=== PATIENT | female | born 1990 | race Caucasian/White ===

== ENCOUNTER 2017-05-07 02:52 | Emergency (ER) | payer BC ==
[2017-05-07] MEDS ORDERED: LORazepam 2 MG/ML MDV IM ONE (03:26)
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
[2017-05-07] MEDS ORDERED: diphenhydrAMINE 50 MG/ML SDV IM ONE (03:57)
[2017-05-07] MEDS ORDERED: Haloperidol Lactate 5 MG/ML SDV IM ONE (03:57)
[2017-05-07 09:55] VITALS: BP 110/70
== END 2017-05-07 09:53 | disposition home or self-care (01) ==
LOC: JP.ED 02:52
DX: F10.10 Alcohol abuse, uncomplicated (principal); F31.9 Bipolar disorder, unspecified; F90.8 Attention-deficit hyperactivity disorder, other type; Z87.891 Personal history of nicotine dependence; Z79.899 Other long term (current) drug therapy; Z88.8 Allergy status to other drugs, medicaments and biological substances; Y90.6 Blood alcohol level of 120-199 mg/100 ml
CPT/HCPCS: 36415; 80053; 80305; 81025; 85025; 96372; 99285; G0480; J1200; J1630; J2060

== ENCOUNTER 2019-02-21 12:29 | Emergency (ER) | payer MEDICAID ==
[2019-02-21 12:37] VITALS: BP 101/68
[2019-02-21] MEDS ORDERED: Sodium Chloride 0.9% 1,000 ML IV SCH ×2 (12:45→14:00)
--- NOTE | 2019-02-21 14:23 | EDM.PDOC ---
ED HPI GENERAL MEDICAL PROBLEM - General Chief Complaint: Gastrointestinal Problem Stated Complaint: STOMACH PAIN Time Seen by Provider: 02/21/19 14:17 Source of Information: Reports: Patient History Limitations: Reports: No Limitations - History of Present Illness INITIAL COMMENTS - FREE TEXT/NARRATIVE: pt arrived with ahistory of marked vomiting since early am. She had afew loose stools. She states that her boyfriend also is ill and vomiting. She is and will deliver in may. Onset: Today, Sudden Duration: Hour(s): Location: Reports: Generalized Associated Symptoms: Reports: Loss of Appetite, Nausea/Vomiting, Weakness - Related Data Allergies Allergy/AdvReac Type Severity Reaction Status Date / Time citalopram [From Celexa] Allergy Cannot Verified 05/07/17 03:21 Remember fluoxetine Allergy Cannot Verified 05/07/17 03:21 Remember bupropion AdvReac Anxiety Verified 05/08/17 10:55 Home Meds: Home Meds Yqs066/FA/Omega3/Dha/Fish Oil [ Gummies] 2 tab PO DAILY 02/21/19 [ History] Sertraline [Zoloft] 100 mg PO DAILY 02/21/19 [History] hydrOXYzine HCl [Atarax] 100 mg PO BEDTIME 02/21/19 [History] Past Medical History Psychiatric History: Reports: ADHD, Anxiety, Bipolar, Psych Hospitalization(s), PTSD, Suicide Attempt, Suicidal Ideation - Past Surgical History HEENT Surgical History: Reports: Adenoidectomy, Other (See Below) Other HEENT Surgeries/Procedures: deviated septum Musculoskeletal Surgical History: Reports: Other (See Below) Other Musculoskeletal Surgeries/Procedures:: bunion surgery r knee surgery cyst on wrist. Social & Family History - Tobacco Use Smoking Status *Q: Never Smoker - Caffeine Use Caffeine Use: Reports: Coffee - Recreational Drug Use Recreational Drug Use: No ED ROS GENERAL - Review of Systems Review Of Systems: See Below Constitutional: Reports: Weakness, Decreased Appetite HEENT: Reports: No Symptoms Respiratory: Reports: No Symptoms Cardiovascular: Reports: No Symptoms Endocrine: Reports: No Symptoms GI/Abdominal: Reports: Nausea, Vomiting, Other (pt has no sig pain. She was seen up in ob and her heart tones looked good. A urine was obtained whuich appeared unremarkable. ) Musculoskeletal: Reports: No Symptoms Skin: Reports: No Symptoms ED EXAM, GI/ABD - Physical Exam Exam: See Below Text/Narrative:: pt arrived because of persistent vomiting. She is not having sig pain in the abdoman. Exam Limited By: No Limitations General Appearance: Alert, No Apparent Distress Ears: Normal TMs Nose: Normal Inspection Throat/Mouth: Normal Inspection Head: Atraumatic Neck: Normal Inspection Respiratory/Chest: No Respiratory Distress Cardiovascular: Regular Rate, Rhythm GI/Abdominal Exam: Other (no tenderness. Pt had good heart tones. ) (Female) Exam: Deferred Rectal (Female) Exam: Deferred Back Exam: Normal Inspection Extremities: Normal Inspection Neurological: Alert, Oriented, Normal Cognition Psychiatric: Normal Affect Course - Vital Signs Last Recorded V/S: Last Vital Signs Temp 37.1 C 02/21/19 12:52 Pulse 108 H 02/21/19 12:52 Resp 17 02/21/19 12:52 BP 101/68 02/21/19 12:52 Pulse Ox 97 02/21/19 12:52 - Orders/Labs/Meds Labs: Laboratory Tests 02/21/19 02/21/19 Range/Units 12:43 12:43 WBC 17.2 H (4.5-11.0) K/uL RBC 4.04 (3.30-5.50) M/uL Hgb 12.3 (12.0-15.0) g/dL Hct 36.5 (36.0-48.0) % MCV 90 (80-98) fL MCH 30 (27-31) pg MCHC 34 (32-36) % Plt Count 320 (150-400) K/uL Neut % (Auto) 78 H (36-66) % Lymph % (Auto) 14 L (24-44) % [place] % (Auto) 7 H (2-6) % Eos % (Auto) 0 L (2-4) % Baso % (Auto) 0 (0-1) % Sodium 139 L (140-148) mmol/L Potassium 3.9 (3.6-5.2) mmol/L Chloride 104 (100-108) mmol/L Carbon Dioxide 25 (21-32) mmol/L Anion Gap 13.9 (5.0-14.0) mmol/L BUN 5 L (7-18) mg/dL Creatinine 0.6 (0.6-1.0) mg/dL Est Cr Clr Drug Dosing 126.73 mL/min Estimated GFR (MDRD) > 60 (>60) Glucose 86 (74-106) mg/dL Calcium 8.7 (8.5-10.1) mg/dL Total Bilirubin 0.4 (0.2-1.0) mg/dL AST 13 L (15-37) U/L ALT 14 (12-78) U/L Alkaline Phosphatase 75 (46-116) U/L Total Protein 5.9 L (6.4-8.2) g/dL Albumin 2.6 L (3.4-5.0) g/dL Globulin 3.3 (2.3-3.5) g/dL Albumin/Globulin Ratio 0.8 L (1.2-2.2) Meds: Medications Discontinued Medications Generic Name Dose Route Start Last Admin Trade Name Freq PRN Reason Stop Dose Admin Sodium Chloride 1,000 mls @ 999 mls/hr 02/21/19 12:45 02/21/19 12:55 Normal Saline IV 999 mls/hr ASDIRECTED SHORTY Administration Sodium Chloride 1,000 mls @ 999 mls/hr 02/21/19 14:00 02/21/19 14:13 Normal Saline IV 999 mls/hr ASDIRECTED SHORTY Administration - Re-Assessments/Exams Free Text/Narrative Re-Assessment/Exam: 02/21/19 14:21 pt had a elevated cbc but with being that is difficult to evaluate. Her electrolytes are good. She has no pain in the abdoman. Her urine did not reveal a infection. She is dehydrated and she was given 2 liters of fluid. Departure - Departure Time of Disposition: 15:30 Disposition: Home, Self-Care 01 Condition: Fair Clinical Impression: Dehydration - Discharge Information Instructions: Dehydration, Adult, [id number] Referrals: PCP,None [Primary Care Provider] - Forms: ED Department Discharge Additional Instructions: push fluids , zoforan 4 mg q8h prn for nausea, rtc if persistent problems.
== END 2019-02-21 15:27 | disposition home or self-care (01) ==
LOC: JP.ED 12:29
DX: E86.0 Dehydration (principal); F31.9 Bipolar disorder, unspecified; F41.9 Anxiety disorder, unspecified; Z79.899 Other long term (current) drug therapy; Z88.8 Allergy status to other drugs, medicaments and biological substances; O99.89 Other specified diseases and conditions complicating pregnancy, childbirth and the puerperium; R10.9 Unspecified abdominal pain; O21.9 Vomiting of pregnancy, unspecified; Z3A.28 28 weeks gestation of pregnancy
CPT/HCPCS: 36415; 80053; 81001; 85025; 96360; 96361; 99211; 99283; J7030

== ENCOUNTER 2019-05-08 06:42 | Inpatient (IN) | payer MEDICAID ==
[2019-05-08] MEDS ORDERED: Misoprostol 50 MCG (1/2 of 100 MCG) Tab VAG ONE ×2 (07:28→12:31)
[2019-05-08] MEDS ORDERED: Ondansetron 4 MG/2 ML SDV IV PRN (08:09)
[2019-05-08] MEDS ORDERED: Sodium Chloride 0.9% 10 ML Syringe FLUSH PRN (08:09)
[2019-05-08] MEDS ORDERED: Acetaminophen 325 MG Tab PO PRN (08:09)
--- NOTE | 2019-05-08 09:19 | CRLUS ---
INDICATION: Third trimester scan, evaluate position TECHNIQUE: Limited 2D mckeon scale imaging of the fetus was performed. FINDINGS: The fetus demonstrates a regular cardiac rate of 128 beats per minute. Fetus has a cephalic orientation and longitudinal lie. The placenta lies anteriorly without evidence of placenta previa. Amniotic fluid volume appears normal and there is a four-quadrant fluid volume index measurement of 14.5 cm. The cervix is closed and measures 4.1 cm in length. IMPRESSION: Cephalic orientation of the fetus. Dictated by Santiago Luna MD @ May 08 2019 9:14AM Signed by Dr. Santiago Luna @ May 08 2019 9:17AM
--- NOTE | 2019-05-08 12:43 | PCM.PNLD ---
Labor Progress Note - VS & Meds Vital Signs: Last Vital Signs Temp 36.3 C 05/08/19 07:00 Pulse 87 05/08/19 08:20 Resp 18 05/08/19 07:00 BP 112/54 L 05/08/19 08:20 Pulse Ox Active Medications: Current Medications Acetaminophen (Tylenol) 650 mg PO Q4H PRN PRN Reason: Pain (Mild 1-3) and fever Misoprostol (Cytotec) 25 mcg VAG ONETIME ONE Stop: 05/08/19 12:46 Ondansetron HCl (Zofran) 4 mg IV Q4H PRN PRN Reason: Nausea/Vomiting Sodium Chloride (Saline Flush) 10 ml FLUSH ASDIRECTED PRN PRN Reason: Keep Vein Open Discontinued Medications Misoprostol (Cytotec) 50 mcg VAG ONETIME ONE Stop: 05/08/19 07:29 Last Admin: 05/08/19 07:40 Dose: 50 mcg - Uterine Contractions Uterine Monitoring Mode: External [place] Contraction Frequency (min): 2-2.5 Contraction Duration (sec): 40-50 Uterine Resting Tone: Soft - Monitoring Monitor Mode: External Ultrasound Heart Rate (FHR) Variability: Moderate (6-25 bmp) Accelerations: Present, 15x15 Decelerations: None Strip Review: Category I - Vaginal Exam Dilation (cm): 1 Effacement (Percent): 70 Station: Ballotable Cervical Position: Midposition Sterile Vaginal Exam Performed By: Regine Greene Vaginal Exam Comment: no cervical change since last exam - Labor Progress (Free Text) Labor Progress: 05/08/2019- Patient is bekah now SVE unchanged since this am FHTs category one Patient tolerating contractions with position change and breathing Plan- Will place 25mcg cytotec Continue to monitor for active labor Continue to monitor FHTs Plan and anticipate a vaginal delivery
[2019-05-08] MEDS ORDERED: Misoprostol 25 MCG (1/4 of 100 MCG) Tab VAG ONE (12:45)
--- NOTE | 2019-05-08 12:55 | PCM.LDHP ---
L&D History of Present Illness - General Date of Service: 05/08/19 Admit Problem/Dx: Patient Status Order with Admit Dx/Problem 05/08/19 08:09 Patient Status [ADT] Routine Admission Diagnosis/Problem Admission Diagnosis/Problem - Related Data Allergies/Adverse Reactions: Allergies Allergy/AdvReac Type Severity Reaction Status Date / Time citalopram [From Celexa] Allergy Cannot Verified 05/07/17 03:21 Remember fluoxetine Allergy Cannot Verified 05/07/17 03:21 Remember bupropion AdvReac Anxiety Verified 05/08/17 10:55 Home Medications: Home Meds [id number]/FA/Omega3/Dha/Fish Oil [ Gummies] 2 tab PO DAILY 02/21/19 [ History] Sertraline [Zoloft] 100 mg PO DAILY 02/21/19 [History] hydrOXYzine HCl [Atarax] 100 mg PO BEDTIME 02/21/19 [History] Past Medical History [employer] History: Reports: Psychiatric History: Reports: ADHD, Anxiety, Bipolar, Psych Hospitalization(s), PTSD, Suicide Attempt, Suicidal Ideation - Past Surgical History HEENT Surgical History: Reports: Adenoidectomy, Other (See Below) Other HEENT Surgeries/Procedures: deviated septum Musculoskeletal Surgical History: Reports: Other (See Below) Other Musculoskeletal Surgeries/Procedures:: bunion surgery r knee surgery cyst on wrist. Social & Family History - Tobacco Use Smoking Status *Q: Former Smoker Used Tobacco, but Quit: Yes Month/Year Tobacco Last Used: 03/02/2019 Second Hand Smoke Exposure: No - Caffeine Use Caffeine Use: Reports: None - Recreational Drug Use Recreational Drug Use: No H&P Review of Systems - Review of Systems: Review Of Systems: See Below General: Reports: No Symptoms HEENT: Reports: No Symptoms Pulmonary: Reports: No Symptoms Cardiovascular: Reports: No Symptoms Gastrointestinal: Reports: No Symptoms Genitourinary: Reports: No Symptoms Musculoskeletal: Reports: No Symptoms Skin: Reports: No Symptoms Psychiatric: Reports: No Symptoms Neurological: Reports: No Symptoms Hematologic/Lymphatic: Reports: No Symptoms Immunologic: Reports: No Symptoms L&D Exam - Exam Exam: See Below - Vital Signs Vital Signs: Last Vital Signs Temp 36.3 C 05/08/19 07:00 Pulse 87 05/08/19 12:30 Resp 18 05/08/19 07:00 BP 124/72 05/08/19 12:30 Pulse Ox Weight: 116.12 kg - OB Specific Contraction Duration (sec): 40-50 Contraction Frequency (min): 2-2.5 Contraction Intensity: Mild Heart Rate (FHR) Variability: Moderate (6-25 bmp) Presentation: Vertex - Steel Score Steel Score Cervix Position: Posterior Steel Score Consistency: Soft Steel Score Effacement: 51-70% Steel Score Dilation: 1-2 cm Steel Score Infant's Station: -3 Steel Score Total: 5 - Exam General: Alert, Oriented HEENT: PERRLA, Conjunctiva Clear, EACs Clear, EOMI, Hearing Intact, Mucosa Moist & [place], Nares Patent, Normal Nasal Septum, Posterior Pharynx Clear, TMs Clear Neck: Supple, Trachea Midline Lungs: Clear to Auscultation, Normal Respiratory Effort Cardiovascular: Regular Rate, Regular Rhythm GI/Abdominal Exam: Normal Bowel Sounds, Soft, Non-Tender, No Organomegaly, No Distention, No Abnormal Bruit, No Mass, Pelvis Stable Rectal Exam: Normal Exam, Normal Rectal Tone Genitourinary: Normal external exam, Normal bimanual exam, Normal speculum exam Back Exam: Normal Inspection, Full Range of Motion Extremities: Normal Inspection, Normal Range of Motion, Non-Tender, No Pedal Edema, Normal Capillary Refill Skin: Warm, Dry, Intact Neurological: Cranial Nerves Intact, Reflexes Equal Bilateral Psychiatric: Alert, Normal Affect, Normal Mood - Patient Data Lab Results Last 24 hrs: Laboratory Results - last 24 hr 05/08/19 05/08/19 05/08/19 Range/Units 07:01 08:09 08:09 WBC 15.9 H (4.5-11.0) K/uL RBC 4.09 (3.30-5.50) M/uL Hgb 12.1 (12.0-15.0) g/dL Hct 36.3 (36.0-48.0) % MCV 89 (80-98) fL MCH 30 (27-31) pg MCHC 33 (32-36) % Plt Count 352 (150-400) K/uL Neut % (Auto) 76 H (36-66) % Lymph % (Auto) 16 L (24-44) % [place] % (Auto) 8 H (2-6) % Eos % (Auto) 1 L (2-4) % Baso % (Auto) 0 (0-1) % Urine Color Yellow (YELLOW) Urine Appearance Clear (CLEAR) Urine pH 7.0 (5.0-8.0) Ur Specific [place] 1.015 (1.008-1.030) Urine Protein Negative (NEGATIVE) mg/dL Urine Glucose (UA) Normal (NEGATIVE) mg/dL Urine Ketones Negative (NEGATIVE) mg/dL Urine Occult Blood Negative (NEGATIVE) Urine Nitrite Negative (NEGATIVE) Urine Bilirubin Negative (NEGATIVE) Urine Urobilinogen Normal (0.2-1.0) EU/dL Ur Leukocyte Esterase Negative (NEGATIVE) Urine RBC 0-5 (0-5) Urine WBC 0-5 (0-5) Ur Epithelial Cells Rare Amorphous Sediment Not seen Urine Bacteria Rare Urine Mucus Not seen Urine Opiates Screen Negative (NEGATIVE) Ur Oxycodone Screen Negative (NEGATIVE) Urine Methadone Screen Negative (NEGATIVE) Ur Propoxyphene Screen Negative (NEGATIVE) Ur Barbiturates Screen Negative (NEGATIVE) Ur Tricyclics Screen Negative (NEGATIVE) Ur Phencyclidine Scrn Negative (NEGATIVE) Ur Amphetamine Screen Negative (NEGATIVE) U Methamphetamines Scrn Negative (NEGATIVE) Urine MDMA Screen Negative (NEGATIVE) U Benzodiazepines Scrn Negative (NEGATIVE) U Cocaine Metab Screen Negative (NEGATIVE) U Marijuana (THC) Screen Negative (NEGATIVE) Result Diagrams: 05/08/19 08:09 - Problem List (1) SNOMED Code(s): 07713759 ICD Code: Z34.90 - ENCNTR FOR SUPRVSN OF NORMAL , UNSP, UNSP TRIMESTER Status: Acute Current Visit: Yes Qualifiers: Weeks of gestation: 39 weeks Qualified Code(s): Z3A.39 - 39 weeks gestation of (2) Excessive weight gain during in third trimester SNOMED Code(s): 538668724, 354607076, 367188469 ICD Code: O26.03 - EXCESSIVE WEIGHT GAIN IN , THIRD TRIMESTER Status: Acute Current Visit: Yes (3) Abnormal ultrasound SNOMED Code(s): 46331204716342 ICD Code: O28.3 - ABNORMAL ULTRASONIC FINDING ON SCREENING OF MOTHER Status: Acute Current Visit: Yes (4) Macrosomia of fetus affecting management of mother SNOMED Code(s): 24670563 ICD Code: O36.60X0 - MATERNAL CARE FOR EXCESS GROWTH, UNSP TRIMESTER, UNSP Status: Acute Current Visit: Yes Qualifiers: Fetus number: single or unspecified fetus (5) High risk , antepartum SNOMED Code(s): 70029033 ICD Code: O09.90 - SUPERVISION OF HIGH RISK , UNSP, UNSP TRIMESTER Status: Acute Current Visit: Yes Problem List Initiated/Reviewed/Updated: Yes Orders Last 24hrs: Active Orders 24 hr Category Date Time Status Patient Status [ADT] Routine ADT 05/08/19 08:09 Active Communication Order [RC] ASDIRECTED Care 05/08/19 08:09 Active Heart Tones [RC] PER UNIT ROUTINE Care 05/08/19 08:09 Active Non Stress Test [RC] Click to Edit Care 05/08/19 08:09 Active May Shower [RC] ASDIRECTED Care 05/08/19 08:09 Active Notify Provider Vital Signs [RC] PRN Care 05/08/19 08:09 Active Notify Provider [RC] PRN Care 05/08/19 08:09 Active Up ad Lynda [RC] ASDIRECTED Care 05/08/19 08:09 Active Vital Signs [RC] PER UNIT ROUTINE Care 05/08/19 08:09 Active Regular Diet [DIET] Diet 05/08/19 Breakfast Active Acetaminophen [Tylenol] Med 05/08/19 08:09 Active 650 mg PO Q4H PRN Ondansetron [Zofran] Med 05/08/19 08:09 Active 4 mg IV Q4H PRN Sodium Chloride 0.9% [Saline Flush] Med 05/08/19 08:09 Active 10 ml FLUSH ASDIRECTED PRN Saline Lock Insert [OM.PC] Routine Oth 05/08/19 08:09 Ordered Resuscitation Status Routine Resus Stat 05/08/19 08:09 Ordered Medication Orders Acetaminophen (Tylenol) 650 mg PO Q4H PRN PRN Reason: Pain (Mild 1-3) and fever Ondansetron HCl (Zofran) 4 mg IV Q4H PRN PRN Reason: Nausea/Vomiting Sodium Chloride (Saline Flush) 10 ml FLUSH ASDIRECTED PRN PRN Reason: Keep Vein Open Assessment/Plan Comment:: 05/08/2019 29 yo here at 39 1/7 weeks gestation for induction of labor due to suspected macrosomia with BPD compared to femur length difference SVE-/-5(ballotable) FHTs category one Cytotec 50mcg placed vaginally Bedside ultrasound done to confirm vertex presentation Plan- Continue to monitor for labor Continue to monitor FHTs Patient may be up and about ad lynda Encourage position change May eat regular diet Plan and anticipate a vaginal delivery If no cervical change will place another cytotec in four hours
--- NOTE | 2019-05-08 17:43 | PCM.PNLD ---
Labor Progress Note - VS & Meds Vital Signs: Last Vital Signs Temp 36.6 C 05/08/19 12:40 Pulse 89 05/08/19 13:20 Resp 18 05/08/19 12:50 BP 108/49 L 05/08/19 13:20 Pulse Ox Active Medications: Current Medications Acetaminophen (Tylenol) 650 mg PO Q4H PRN PRN Reason: Pain (Mild 1-3) and fever Oxytocin/Sodium Chloride (Pitocin In Ns 20 Units/1,000 Ml) 20 unit in 1,000 mls @ 6 mls/hr IV TITRATE SHORTY; Protocol Ondansetron HCl (Zofran) 4 mg IV Q4H PRN PRN Reason: Nausea/Vomiting Sodium Chloride (Saline Flush) 10 ml FLUSH ASDIRECTED PRN PRN Reason: Keep Vein Open Zolpidem Tartrate (Ambien) 10 mg PO ONETIME ONE Stop: 05/08/19 20:01 Discontinued Medications Misoprostol (Cytotec) 50 mcg VAG ONETIME ONE Stop: 05/08/19 07:29 Last Admin: 05/08/19 07:40 Dose: 50 mcg Misoprostol (Cytotec) 25 mcg VAG ONETIME ONE Stop: 05/08/19 12:46 Last Admin: 05/08/19 12:45 Dose: 25 mcg - Uterine Contractions Uterine Monitoring Mode: External [place] Contraction Frequency (min): 2-5 Contraction Duration (sec): 40-50 Contraction Intensity: Mild Uterine Resting Tone: Soft - Monitoring Monitor Mode: External Ultrasound Heart Rate (FHR) Variability: Moderate (6-25 bmp) Accelerations: Present, 15x15 Decelerations: None Strip Review: Category I - Vaginal Exam Dilation (cm): 1 Effacement (Percent): 70 Station: Ballotable Cervical Position: Midposition Sterile Vaginal Exam Performed By: Regine Greene Vaginal Exam Comment: no cervical change since last exam - Labor Progress (Free Text) Labor Progress: 05/08/2019 Patient is bekah more regular but not consistent and not uncomfortable SVE unchanged, maybe a little thinner in effacement-1/75/-5 ballotable FHTs category one Discussed all options with patient, patient has decided to sleep in house and if no labor by am she is to be started on Pitocin per patient choice. Plan- Continue to monitor for active labor Continue to monitor FHTs Can go to intermittent monitoring with whenever patient gets up to bathroom If does not awaken-monitor with vital signs every four hours Ambien to be given between [id number] Patient to be awoken at 0430 and then to shower, walk, light breakfast and then after a reactive NST, SVE exam and start pitocin at 0500 Will repeat CBC in am Plan pitocin per protocol starting at 0500 Continuous monitoring after starting pitocin Patient can eat regular diet tonight, light breakfast in am If suspected ROM, amnisure, SVE, leave in bed, and call provider with assessment
[2019-05-08] MEDS ORDERED: Lactated Ringers 1,000 ML IV ONE (18:59)
[2019-05-08] MEDS ORDERED: Oxytocin 10 Units/1 ML SDV ONE ×2 (19:15→20:19)
[2019-05-08] MEDS ORDERED: Lanolin 100% Cream 40 GM Tube TOP PRN (19:42)
[2019-05-08] MEDS ORDERED: diphenhydrAMINE 50 MG/ML SDV IV PRN (19:42)
[2019-05-08] MEDS ORDERED: diphenhydrAMINE 50 MG/ML SDV IVPUSH PRN (19:42)
[2019-05-08] MEDS ORDERED: ePHEDrine 50 MG/ML SDV IVPUSH PRN (19:42)
[2019-05-08] MEDS ORDERED: Naloxone 0.4 MG/ML SDV IVPUSH PRN (19:42)
[2019-05-08] MEDS ORDERED: Hydrocortisone 2.5% Crm 30 GM Tube TOP PRN (19:42)
[2019-05-08] MEDS ORDERED: Bisacodyl 10 MG Supp RECTAL PRN (19:42)
[2019-05-08] MEDS ORDERED: Sodium Chloride 0.9% 1,000 ML IV SCH (19:45)
[2019-05-08] MEDS ORDERED: Zolpidem 5 MG Tab PO ONE (20:00)
[2019-05-08] MEDS ORDERED: Ondansetron 4 MG/2 ML SDV ONE (20:19)
[2019-05-08] MEDS ORDERED: Dexamethasone 4 MG/ML SDV ONE (20:19)
[2019-05-08] MEDS ORDERED: Bupivacaine 0.5% 30 ML SDV ONE (20:19)
[2019-05-08] MEDS ORDERED: ePHEDrine 50 MG/ML SDV ONE (20:19)
[2019-05-08] MEDS ORDERED: cefOXitin 2 GM Vial ONE (20:19)
[2019-05-08] MEDS ORDERED: Midazolam 1 MG/ML 2 ML SDV ONE (20:32)
[2019-05-08] MEDS ORDERED: fentaNYL 100 MCG/2 ML SDV ONE (20:33)
[2019-05-08] MEDS ORDERED: Lactated Ringers 1,000 ML ONE (20:42)
--- NOTE | 2019-05-08 20:49 | PCM.PNLD ---
Labor Progress Note - VS & Meds Vital Signs: Last Vital Signs Temp 36.6 C 05/08/19 12:40 Pulse 89 05/08/19 13:20 Resp 18 05/08/19 12:50 BP 108/49 L 05/08/19 13:20 Pulse Ox Active Medications: Current Medications Acetaminophen (Tylenol) 650 mg PO Q4H PRN PRN Reason: Pain (Mild 1-3) and fever Bisacodyl (Dulcolax) 10 mg RECTAL BID PRN PRN Reason: Constipation Diphenhydramine HCl (Benadryl) 25 mg IVPUSH Q6H PRN PRN Reason: Itching or Nausea Diphenhydramine HCl (Benadryl) 25 mg IV Q4H PRN PRN Reason: Itching Docusate Sodium (Colace) 100 mg PO Q12H PRN PRN Reason: Constipation Emollient Ointment (Lansinoh Hpa) 40 gm TOP ASDIRECTED PRN PRN Reason: sore nipples Ephedrine Sulfate (Ephedrine Sulfate) 5 mg IVPUSH ASDIRECTED PRN PRN Reason: Other Hydrocortisone (Hydrocortisone 2.5% Crm) 0 gm TOP Q4H PRN PRN Reason: Hemorrhoids Oxytocin/Sodium Chloride (Pitocin In Ns 20 Units/1,000 Ml) 20 unit in 1,000 mls @ 6 mls/hr IV TITRATE SHORTY; Protocol Sodium Chloride (Normal Saline) 1,000 mls @ 125 mls/hr IV ASDIRECTED SHORTY Ibuprofen (Motrin) 800 mg PO Q8H PRN PRN Reason: mild pain or fever Naloxone HCl (Narcan) 0.1 mg IVPUSH ASDIRECTED PRN PRN Reason: Respiratory Depression Ondansetron HCl (Zofran) 4 mg IV Q4H PRN PRN Reason: Nausea/Vomiting Ondansetron HCl (Zofran Odt) 8 mg PO Q6H PRN PRN Reason: Nausea/Vomiting Oxycodone/Acetaminophen (Percocet 325-5 Mg) 2 tab PO Q4H PRN PRN Reason: Pain (moderate 4-6) Prenat Multivit/Cash Management Associate/Iron/Folic Ac ( Plus Iron) 1 each PO DAILY SHORTY Sodium Chloride (Saline Flush) 10 ml FLUSH ASDIRECTED PRN PRN Reason: Keep Vein Open Discontinued Medications Bupivacaine HCl (Marcaine 0.5%) Confirm Administered Dose 30 ml .ROUTE .STK-MED ONE Stop: 05/08/19 20:20 Cefoxitin Sodium (Mefoxin) Confirm Administered Dose 2 gm .ROUTE .STK-MED ONE Stop: 05/08/19 20:20 Dexamethasone (Dexamethasone) Confirm Administered Dose 4 mg .ROUTE .STK-MED ONE Stop: 05/08/19 20:20 Ephedrine Sulfate (Ephedrine Sulfate) Confirm Administered Dose 50 mg .ROUTE .STK-MED ONE Stop: 05/08/19 20:20 Fentanyl (Sublimaze) Confirm Administered Dose 100 mcg .ROUTE .STK-MED ONE Stop: 05/08/19 20:34 Lactated Ringer's (Ringers, Lactated) 1,000 mls @ 999 mls/hr IV BOLUS ONE Stop: 05/08/19 19:59 Lactated Ringer's (Ringers, Lactated) Confirm Administered Dose 1,000 mls @ as directed .ROUTE .STK-MED ONE Stop: 05/08/19 20:43 Midazolam HCl (Versed 1 Mg/Ml) Confirm Administered Dose 2 mg .ROUTE .STK-MED ONE Stop: 05/08/19 20:33 Misoprostol (Cytotec) 50 mcg VAG ONETIME ONE Stop: 05/08/19 07:29 Last Admin: 05/08/19 07:40 Dose: 50 mcg Misoprostol (Cytotec) 25 mcg VAG ONETIME ONE Stop: 05/08/19 12:46 Last Admin: 05/08/19 12:45 Dose: 25 mcg Ondansetron HCl (Zofran) Confirm Administered Dose 4 mg .ROUTE .STK-MED ONE Stop: 05/08/19 20:20 Oxytocin (Pitocin) Confirm Administered Dose 10 unit .ROUTE .STK-MED ONE Stop: 05/08/19 19:16 Oxytocin (Pitocin) Confirm Administered Dose 20 unit .ROUTE .STK-MED ONE Stop: 05/08/19 20:20 Zolpidem Tartrate (Ambien) 10 mg PO ONETIME ONE Stop: 05/08/19 20:01 - Uterine Contractions Uterine Monitoring Mode: External [place] Contraction Frequency (min): 2 Contraction Duration (sec): 60-80 Contraction Intensity: Mild to Moderate Uterine Resting Tone: Soft - Monitoring Monitor Mode: External Ultrasound Heart Rate (FHR) Variability: Moderate (6-25 bmp) Accelerations: Present, 15x15 Decelerations: None Strip Review: Category I - Vaginal Exam Dilation (cm): 1 Effacement (Percent): 70 Station: Ballotable Cervical Position: Midposition Sterile Vaginal Exam Performed By: Regine Greene - Labor Progress (Free Text) Labor Progress: 05/08/2019 Patient SROM, unable to feel presenting part, large amount of fluid, decision made to proceed with an urgent . Surgery crew called and patient brought down to OR.
[2019-05-08] MEDS ORDERED: Meperidine PF 25 MG/ML Syringe IVPUSH ONE (20:55)
[2019-05-08] MEDS ORDERED: Meperidine PF 25 MG/ML Syringe ONE (20:56)
[2019-05-08] MEDS: Acetaminophen/oxyCODONE 325-5 MG Tab PO PRN (21:38)
[2019-05-08] MEDS: Ondansetron 4 MG Tab.DIS PO PRN (21:40)
[2019-05-08] MEDS ORDERED: Morphine 2 MG/ML Syringe IVPUSH PRN ×2 (22:11→22:57)
[2019-05-08] MEDS: Ibuprofen 800 MG Tab PO PRN (22:31)
[2019-05-08] MEDS ORDERED: hydrOXYzine HCl 100 MG/2 ML SDV IM ONE (23:39)
[2019-05-09] MEDS: fentaNYL 100 MCG/2 ML SDV IVPUSH PRN ×5 (00:14→22:55)
[2019-05-09] MEDS ORDERED: cefTRIAXone 2 GM in Sodium Chloride 0.9% 50 ML IV ONE (07:55)
--- NOTE | 2019-05-09 08:03 | PN ---
DATE OF SERVICE: 05/09/2019 SUBJECTIVE: The patient is doing very well. Pain is well controlled. No nausea, vomiting, shortness of breath, or chest pain. OBJECTIVE: VITAL SIGNS: Stable. She is afebrile. CARDIOVASCULAR: Regular rhythm and rate. RESPIRATORY: Lungs are clear to auscultation bilaterally. SKIN: Incision healing well. ASSESSMENT: Status post section. PLAN: The patient does have an elevated white blood cell count, which is being addressed by the international editorial producer service. Most likely, this is not related to recent section at this time. She will receive course of antibiotics and continue to be monitored by us. 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 The patient is passing gas. No bowel movement yet. Harry Storm MD /[id number]
[2019-05-09] MEDS: Docusate Sodium 100 MG Cap PO PRN (09:02)
[2019-05-09] MEDS: Ibuprofen 800 MG Tab PO PRN ×3 (09:02→21:52)
[2019-05-09] MEDS: Acetaminophen/oxyCODONE 325-5 MG Tab PO PRN ×4 (09:03→20:59)
[2019-05-09] MEDS: lamoTRIgine 25 MG Tab PO SCH ×2 (09:04→20:59)
[2019-05-09] MEDS: Prenatal Multivitamin with Calcium/Folic Acid/Iron Tab PO SCH (09:04)
[2019-05-09] MEDS: Zolpidem 5 MG Tab PO PRN (21:52)
[2019-05-10] MEDS: Docusate Sodium 100 MG Cap PO PRN ×2 (00:04→07:58)
[2019-05-10] MEDS: Acetaminophen/oxyCODONE 325-5 MG Tab PO PRN ×6 (02:16→22:58)
[2019-05-10] MEDS: Ibuprofen 800 MG Tab PO PRN ×3 (06:29→22:57)
[2019-05-10] MEDS ORDERED: Measles, Mumps & Rubella Vaccine 0.5 ML SDV SUBCUT ONE (09:00)
[2019-05-10] MEDS: Prenatal Multivitamin with Calcium/Folic Acid/Iron Tab PO SCH (10:38)
[2019-05-10] MEDS: lamoTRIgine 25 MG Tab PO SCH ×2 (10:38→22:01)
--- NOTE | 2019-05-10 11:18 | PN ---
DATE OF SERVICE: 05/10/2019 SUBJECTIVE: The patient is doing very well. Pain is well controlled. No nausea, vomiting, shortness of breath, or chest pain. OBJECTIVE: VITAL SIGNS: Stable. She is afebrile per nursing report. CARDIOVASCULAR: Regular rhythm and rate. RESPIRATORY: Lungs are clear to auscultation bilaterally. ABDOMEN: Incision is healing well. No signs of cellulitis or infection. ASSESSMENT: Postop day #2 . PLAN: The patient will continue to work on diet and activity. She is passing gas. She does have some swelling in her lower extremities. We discussed the importance of activity, and she will be most likely discharged in the next 24 hours. Harry Storm MD /[id number]
[2019-05-10] MEDS: Ondansetron 4 MG Tab.DIS PO PRN ×2 (16:07→22:01)
[2019-05-10] MEDS: Zolpidem 5 MG Tab PO PRN (22:01)
[2019-05-11] MEDS: Acetaminophen/oxyCODONE 325-5 MG Tab PO PRN ×3 (02:54→11:03)
[2019-05-11] MEDS: Ibuprofen 800 MG Tab PO PRN (07:29)
[2019-05-11] MEDS: Docusate Sodium 100 MG Cap PO PRN (07:30)
[2019-05-11] MEDS: Ondansetron 4 MG Tab.DIS PO PRN (07:33)
[2019-05-11 10:46] VITALS: BP 104/62; PULSE 86
[2019-05-11] MEDS: Prenatal Multivitamin with Calcium/Folic Acid/Iron Tab PO SCH (11:06)
[2019-05-11] MEDS: lamoTRIgine 25 MG Tab PO SCH (11:06)
--- NOTE | 2019-05-16 10:58 | DISCH ---
HOSPITAL COURSE: This is a pleasant female who underwent a due to emergent nature. She did quite well in the postoperative period. Her pain continued to do well with p.o. medications on day #3. She also had no evidence of infection or complication. FOLLOWUP: With Surgery in 7 to 14 days. DISCHARGE MEDICATIONS: Please see MAR. ACTIVITY: As tolerated, but no lifting more than 30 pounds for 30 days.
--- NOTE | 2019-05-16 11:25 | OR ---
DATE OF PROCEDURE: 05/08/2019 SURGEON: Harry Storm MD PROCEDURE: section with aftercare. COMPLICATION: None. WHITE WASHER PILER: Regine Greene CNM PREOPERATIVE DIAGNOSIS: Emergency due to baby status. POSTOPERATIVE DIAGNOSIS: Emergency due to baby status. RISKS: Risks, benefits, alternatives, and limitations including, but not limited to infection, bleeding, injury to baby, bladder, bowel, chronic wounds, infection, and other risks not listed here were explained to the patient and she wished to proceed. ANESTHESIA: Spinal. PROCEDURE IN DETAIL: The patient was placed in supine position. The abdomen was prepped and draped. This was performed using a classic Pfannenstiel type incision. This was made in the skin crease approximately 2 fingerbreadths superior to the pubic symphysis. This was performed with a 15 blade. Electrocautery was then used to carry it down to the external oblique aponeurosis, which was also opened with electrocautery. The peritoneum was opened sharply. Using muscle sparing technique, the rectus was then divided. The bladder was identified, dissected, and deflected inferior to the uterus. This would be protected at all times with a bladder blade. Using a Yenni, the uterus was then opened without difficulty. This was enlarged using the bandage scissors and the baby was delivered without difficulty. Of note, at no point during the delivery was untoward or undue pressure placed or pulled on baby's arms or hands or legs. The cord was then clamped and subsequently cut. The baby was delivered off the field. The placenta was delivered without difficulty. Pitocin was given. The uterus was inspected for any retained materials. None was noted. Uterus was then closed with three layers of #1 Vicryl in a running locked type fashion. The bladder was reapproximated. The abdomen was thoroughly irrigated. The uterus was brought back into the abdomen. The urine was noted to be yellow without abnormality. The rectus muscles were reapproximated with Vicryl suture. The fascia was then closed with #1 Vicryl suture in a running nonlocked fashion x2. Subcutaneous tissues were again irrigated and closed with 3-0 Vicryl and the skin was closed with 4-0 Vicryl and Dermabond. The patient tolerated the procedure well. Harry Storm MD /[id number]
== END 2019-05-11 12:00 | disposition home or self-care (01) | DRG 787 ==
LOC: JP.OB 06:42 → OBSVTOIN 20:15 → JP.OB 20:15 → JP.MS 20:28
PROVIDERS: ADMIT Advanced Practice Midwife; ATTEND Surgery
PROC: 10D00Z1 Extraction of Products of Conception, Low, Open Approach (ICD-10-PCS; principal; 2019-05-08)
PROC: 3E0P7VZ Introduction of Hormone into Female Reproductive, Via Natural or Artificial Opening (ICD-10-PCS; 2019-05-08)
PROC: 3E033VJ Introduction of Other Hormone into Peripheral Vein, Percutaneous Approach (ICD-10-PCS; 2019-05-08)
DX: O36.63X0 Maternal care for excessive fetal growth, third trimester, not applicable or unspecified (principal); O86.4 Pyrexia of unknown origin following delivery; Z3A.39 39 weeks gestation of pregnancy; Z37.0 Single live birth; O99.344 Other mental disorders complicating childbirth; F41.9 Anxiety disorder, unspecified; F31.9 Bipolar disorder, unspecified; F90.9 Attention-deficit hyperactivity disorder, unspecified type; O26.03 Excessive weight gain in pregnancy, third trimester; O28.3 Abnormal ultrasonic finding on antenatal screening of mother; O36.60X0 Maternal care for excessive fetal growth, unspecified trimester, not applicable or unspecified; O42.02 Full-term premature rupture of membranes, onset of labor within 24 hours of rupture; Z88.8 Allergy status to other drugs, medicaments and biological substances; Z79.899 Other long term (current) drug therapy
CPT/HCPCS: 36415; 59409; 76815; 80048; 80305-QW; 81001; 84112; 85025; 85027; 86850; 86900; 86901; 88307; 90471; 90707; A9270-GY; J0694; J0696; J1100; J2175; J2250; J2270; J2405; J2590; J3010; J3410; J3490; J7030; J7050; J7120